=== PATIENT | male | born 1990 | race Asian ===

== ENCOUNTER 2016-11-23 15:12 | Emergency (ER) | payer OTHER ==
[~2016-11-23] VITALS: Ht 167.6 cm; Wt 86.2 kg
[2016-11-23 18:39] VITALS: BP 121/70
== END 2016-11-23 19:39 | disposition home or self-care (01) ==
LOC: ED 15:12
DX: L03.116 Cellulitis of left lower limb (principal); L40.9 Psoriasis, unspecified

== ENCOUNTER 2018-08-23 15:21 | Emergency (ER) | payer OTHER ==
[~2018-08-23] VITALS: Ht 167.6 cm; Wt 87.1 kg
[2018-08-23 21:00] VITALS: BP 135/91
== END 2018-08-23 21:00 | disposition home or self-care (01) ==
LOC: ED 15:21
DX: L03.116 Cellulitis of left lower limb (principal)
CPT/HCPCS: J0696